=== PATIENT | female | born 1990 ===

== ENCOUNTER 2016-12-27 12:10 | Inpatient (IN) | payer OTHER ==
[2016-12-27] VITALS (7 sets, daily range): BP systolic 112–137; BP diastolic 77–85
[~2016-12-27] VITALS: Ht 154.9 cm; Wt 90.0 kg
[2016-12-27] MEDS: miSOPROStol 50 MCG 1/2 TAB (S0191) PO SCH ×2 (13:55→18:41)
[2016-12-27 14:12] LABS: MEAN CORPUSCULAR HEMOGLOBIN 26.2 pg (27.0-33.0); MEAN CORPUSCULAR HGB CONC 33.1 g/dl (32.0-36.5); MEAN CORPUSCULAR VOLUME 79.1 fl (80.0-96.0); RED CELL DISTRIBUTION WIDTH 15.1 % (11.5-14.5); WHITE BLOOD COUNT 4.7 K/mm3 (4.0-10.0)
[2016-12-27 14:42] LABS: ANION GAP 13 MEQ/L (8-16); BLOOD UREA NITROGEN 7 MG/DL (7-18); CALCIUM LEVEL 8.2 MG/DL (8.5-10.1); CARBON DIOXIDE LEVEL 20 MEQ/L (21-32); CHLORIDE LEVEL 107 MEQ/L (98-107); CREATININE FOR GFR 0.48 MG/DL (0.55-1.02); GLOMERULAR FILTRATION RATE > 60.0 (>60); GLUCOSE, FASTING 74 MG/DL (70-105); POTASSIUM SERUM 3.9 MEQ/L (3.5-5.1); SODIUM LEVEL 140 MEQ/L (136-145)
[2016-12-27] MEDS ORDERED: LR 1,000 ML IV SCH (23:06)
[2016-12-27] MEDS: OXYTOCIN DRIP 30 UNITS in APPROPRIATE DILUENT 1 EA IV SCH (23:31)
[2016-12-28] VITALS (54 sets, daily range): BP systolic 114–180; BP diastolic 60–104
[2016-12-28] MEDS: OXYTOCIN DRIP 30 UNITS in APPROPRIATE DILUENT 1 EA IV SCH (08:25)
[2016-12-28 09:19] LABS: HBSAG L&D NEGATIVE (NEGATIVE)
[2016-12-28] MEDS ORDERED: FENTANYL 2MCG/ML ROPIVACAINE 0.2% IN 0.9% NACL 200ML IVBAG As Ordered ONE (20:29)
[2016-12-28] MEDS ORDERED: ONDANSETRON 4MG/2ML VIAL (J2405) IV PRN (20:58)
[2016-12-28] MEDS ORDERED: EPIDURAL/PCA KEYS XX PRN (20:58)
[2016-12-28] MEDS ORDERED: NALOXONE INJ 0.4 MG/1 ML VIAL (J2310) IV PRN (20:58)
[2016-12-28] MEDS ORDERED: EPIDURAL COMMENT XX SCH (20:58)
[2016-12-28] MEDS ORDERED: REFRIGERATOR IV KEYS XX PRN (20:58)
[2016-12-28] MEDS ORDERED: diphenhydrAMINE INJ 50MG/ML VIAL (J1200) IV PRN (20:58)
[2016-12-28] MEDS ORDERED: ePHEDrine SULFATE 25 MG/5 ML(5MG/ML) SYRINGE IV PRN (20:58)
[2016-12-28] MEDS ORDERED: FENTANYL/ROPIVACAINE/NACL BAG 200 ML EPIDURAL SCH (20:58)
[2016-12-29] VITALS (9 sets, daily range): BP systolic 119–164; BP diastolic 77–96
[2016-12-29] MEDS ORDERED: DOCUSATE SODIUM 100 MG CAP PO PRN (00:30)
[2016-12-29] MEDS ORDERED: ANUSOL HC CREAM 30GM TOP PRN (00:30)
[2016-12-29] MEDS ORDERED: RHOGAM 300 MCG (1500 IU) INJ (J2790) IM SCH (00:30)
[2016-12-29] MEDS ORDERED: MEASLES,MUMPS,RUBELLA VACCINE INJ (MMR-II) (90707) SC SCH (00:30)
[2016-12-29] MEDS ORDERED: DIBUCAINE 1% OINTMENT 30GM TOP PRN (00:30)
[2016-12-29] MEDS ORDERED: METHYLERGONOVINE MALEATE 0.2 MG TAB PO PRN (00:30)
[2016-12-29] MEDS ORDERED: MOM 30ML SUSPENSION UDC PO PRN (00:30)
[2016-12-29] MEDS ORDERED: ACETAMINOPHEN 500 MG TAB PO PRN (00:30)
[2016-12-29] MEDS ORDERED: medroxyPROGESTERone ACET IM SUSP 150 MG/ML VIAL (J1050) IM ONE (00:45)
[2016-12-29 00:56] LABS: CORD GAS HCO3 V 17.7 MEQ/L; CORD GAS O2 SAT V 82.1 %; CORD GAS PCO2 V 30.1 mmHg; CORD GAS PH V 7.388 UNITS; CORD GAS PO2 V 36.2 mmHg; CORD GAS SBC V 19.3 MEQ/L; CORD GAS TCO2 V 18.7 MEQ/L
[2016-12-29 00:57] LABS: CORD GAS ABE A -3.7; CORD GAS HCO3 A 20.3 MEQ/L; CORD GAS O2 SAT A 84.6 %; CORD GAS PH A 7.393 UNITS; CORD GAS PO2 A 40.5 mmHg; CORD GAS SBC A 21.1 MEQ/L; CORD GAS TCO2 A 21.3 MEQ/L
[2016-12-29] MEDS ORDERED: medroxyPROGESTERone ACET IM SUSP 150 MG/ML VIAL (J1050) IM SCH (05:15)
[2016-12-29] MEDS: IBUPROFEN 800 MG TAB PO PRN (08:35)
[2016-12-29] MEDS: PRENATAL VITAMINS CHEWABLE TABLET PO SCH (08:35)
[2016-12-30 06:05] VITALS: BP 122/89
[2016-12-30 07:45] LABS: MEAN CORPUSCULAR HEMOGLOBIN 25.8 pg (27.0-33.0); MEAN CORPUSCULAR HGB CONC 32.2 g/dl (32.0-36.5); MEAN CORPUSCULAR VOLUME 80.1 fl (80.0-96.0); RED CELL DISTRIBUTION WIDTH 15.4 % (11.5-14.5); WHITE BLOOD COUNT 7.4 K/mm3 (4.0-10.0)
[2016-12-30] MEDS: PRENATAL VITAMINS CHEWABLE TABLET PO SCH (09:51)
[2016-12-30] MEDS: IBUPROFEN 800 MG TAB PO PRN (09:52)
--- NOTE | 2016-12-30 10:28 | DN ---
DATE OF DELIVERY: 12/29/2016 This lady is a 2, para 3 admitted for induction of labor at 39 weeks, GDAM2, on glyburide. She had an epidural in place, an artificial rupture of membranes at 5 cm at full dilatation, delivered over an intact perineum a livebirth female infant 7 pounds 14 ounces, 3580 grams, scores of 9 and 9 at 1 and 5 minutes, respectively. Arterial and venous pH performed. Placenta delivered spontaneously thereafter. Three-vessel cord, membranes, and tissues intact. She sustained a small first-degree tear in the introital vaginal area oversewed with a 2-0 on the J339. Lateral wall sphincter and the rest of the vagina was intact. Uterus contracted well down under Pitocin. The patient' s is planning on a vasectomy. In the interim, the patient requested Depo-Provera, which be given at the time of discharge. Followup in the office in 6 weeks' time. TISHA
[2016-12-30] MEDS ORDERED: TUMS500C PO (11:46)
[2016-12-30] MEDS ORDERED: PRENTAB9 PO (11:47)
[2016-12-30] MEDS ORDERED: RANI15TA PO (11:48)
[2016-12-30] MEDS ORDERED: IBUP-1114 PO (11:49)
[2016-12-30] MEDS ORDERED: OXYC1TAB23 PO (11:49)
[2016-12-30] MEDS ORDERED: COLA100C5 PO (12:06)
[2016-12-30] MEDS ORDERED: ACET50TA PO (12:06)
[2016-12-30] MEDS ORDERED: DIBU10OI TOP (12:07)
== END 2016-12-30 12:40 | disposition home or self-care (01) | DRG 775 ==
LOC: M LDI 12:10 → M OBS 12-29 02:20
PROVIDERS: ADMIT Obstetrics & Gynecology; ATTEND Obstetrics & Gynecology
PROC: 3E0DXGC Introduction of Other Therapeutic Substance into Mouth and Pharynx, External Approach (ICD-10-PCS; 2016-12-27)
PROC: 10E0XZZ Delivery of Products of Conception, External Approach (ICD-10-PCS; principal; 2016-12-29)
PROC: 0HQ9XZZ Repair Perineum Skin, External Approach (ICD-10-PCS; 2016-12-29)
PROC: 10907ZC Drainage of Amniotic Fluid, Therapeutic from Products of Conception, Via Natural or Artificial Opening (ICD-10-PCS; 2016-12-29)
DX: O24.425 Gestational diabetes mellitus in childbirth, controlled by oral hypoglycemic drugs (principal); Z37.0 Single live birth; Z3A.39 39 weeks gestation of pregnancy; O70.0 First degree perineal laceration during delivery